=== PATIENT | male | born 1935 | race Caucasian/White ===

== ENCOUNTER 2025-01-29 09:49 | Outpatient (NON) | payer MEDICARE, OTHER, SELFPAY ==
[2025-01-29 10:38] LABS: INR 1.7; Prothrombin Time 17.7 Seconds (9.50-12.1)
== END 2025-01-29 09:50 | disposition home or self-care (01) ==
LOC: CHSLAB 09:52
PROVIDERS: Visit Provider Family Medicine
DX: Z79.01 Long term (current) use of anticoagulants (principal)
CPT/HCPCS: 36415; 85610; 85652

== ENCOUNTER 2025-03-08 10:55 | Outpatient (NON) | payer MEDICARE, OTHER, SELFPAY ==
[2025-03-08 11:19] LABS: INR 2.2; Prothrombin Time 22.7 Seconds (9.50-12.1)
== END 2025-03-08 10:56 | disposition home or self-care (01) ==
LOC: CHSLAB 10:58
PROVIDERS: Visit Provider Family Medicine
DX: I48.91 Unspecified atrial fibrillation (principal); Z79.2 Long term (current) use of antibiotics
CPT/HCPCS: 36415; 85610